=== PATIENT | male | born 1970 | race Caucasian/White ===

== ENCOUNTER 2017-04-07 11:55 | Outpatient (CLI) | payer OTHER ==
--- NOTE | 2017-04-08 07:34 | RAD ---
TWO VIEWS LEFT ANKLE: HISTORY: Left ankle pain. FINDINGS: AP and lateral views left ankle were obtained. There is a lateral fusion plate and transosseous screws The patient has had previous old healed ank le fracture. One of the interosseous fractures proximally appears to be fractured. More distal scr ews are intact. There appears to be some soft tissue ossification from old fractures involving the medial malleolus; however, the tibiotalar joint does not demonstrate significant joint space narrowing to suggest art hritic changes. Some similar anterior osteophytes are present. A calcaneal bone spur is seen. 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 IMPRESSION: Surgical changes as described above. The patient has had previous left ankle fractures which have h ealed. No evidence of nonhealed fracture is seen. No evidence of joint effusion seen. POS: [id number]
== END 2017-04-07 11:56 | disposition home or self-care (01) ==
LOC: NAV RAD 11:55
PROVIDERS: ATTEND Family Medicine
DX: Z02.71 Encounter for disability determination (principal)